=== PATIENT | female | born 1990 | race Caucasian/White ===

== ENCOUNTER 2017-02-04 05:45 | Inpatient (IN) | payer OTHER ==
[~2017-02-04] VITALS: Ht 162.6 cm; Wt 71.0 kg
--- NOTE | ~2017-02-04 | OR ---
[facility] [address] [place], [place] [address] Draft DATE OF OPERATION: 02/04/2017 SURGEON: Marga Robles MD PREOPERATIVE DIAGNOSIS: A 26-year-old 5, para 4 with molar approximately 5 weeks long. POSTOPERATIVE DIAGNOSES: A 26-year-old 5, para 4 with molar approximately 5 weeks long, uterine atony and hemorrhage, pelvic hematoma. PROCEDURES: Suction dilation and curettage with Bakri balloon placement, supracervical abdominal hysterectomy with right salpingo-oophorectomy, and cystoscopy. AIR TABLE OPERATOR SURGEON: Regis Alarcon D.O. INTRAOPERATIVE CONSULT: 1. Issa Dumont M.D. 2. Angie Everett M.D. ANESTHESIA: General endotracheal with pharyngeal mask, Issa Martinez CRNA. IV FLUIDS IN: 24684 mL of lactated Ringer's. ESTIMATED BLOOD LOSS: 2500 mL. URINE OUTPUT: 3000 mL, 2800 per Hou draining to gravity and 200 per straight cath. 4 units of packed red blood cells and 2 units of fresh frozen plasma. PROCEDURE TECHNIQUE: The patient was taken back to the operating room with IV fluids hanging. She was placed on the operating table in supine position, underwent general endotracheal anesthesia with rapid sequence intubation using pharyngeal mask and was then repositioned into dorsal PATIENT NAME: TANVIR JERONIMO OPERATIVE REPORT DATE OF : 88 PHYSICIAN: MARGA ROBLES MD REPORT #: [id number] REPORT IS CONFIDENTIAL AND NOT TO BE RELEASED WITHOUT AUTHORIZATION [facility] [address] [place], [place] [address] Draft lithotomy position with Mars stirrups. She was prepped and draped in the normal sterile fashion. A sterile weighted speculum was placed into the vagina and a single-tooth tenaculum placed on the anterior lip of the cervix. The uterus was then sounded to 11 cm and of note, she had staining of the perineum with blood. There was no active bleeding prior to the uterine sounding at the os. The uterus sounded easily and was easily dilated to a size 9 curved suction curette. Suction curettage was then performed. Approximately 600 mL of blood and products of conception were retrieved. During that suction curettage, the uterus was noted to continue to bleed, it was continuously spurting blood despite being massaged and sharp curette was then performed with no change in the status of the uterus in the bleeding. The patient received IM Methergine. Subsequently, Cytotec suppository 1 g was placed per rectum. She then was receiving Pitocin 30 units in her IV fluids and subsequently a second dose of Methergine 0.2 mg was given IM directly into the uterus, again with little change in the bleeding. While these attempts to stop bleeding were being done, the Bakri balloon was also being attempted to be placed through the cervical os, which was easily dilated to accommodate the balloon and once it was in place, that was slowly filled with normal saline solution and bedside ultrasound was performed. Subsequently, a Hou catheter was placed into the bladder to empty it and see if that would also in anyway help with the uterine bleeding. It did seem to slow it down as did the Bakri balloon initially. The patient got a dose of Hemabate IM and that did not help either. At that point in time, Dr. Alarcon was called into the room to assist resistance just after having been successfully placing the Bakri balloon. Further, medications were given to help with hemostasis, which were not successful and further massage of the uterus was performed. It was then determined that the case should be converted to abdominal hysterectomy, and the patient was re-prepped and draped accordingly. Attention was then turned to the abdomen and a Pfannenstiel skin incision was made through the old scar, it was carried down through the subcutaneous tissue to tono the fascia in the midline. That incision was extended laterally and on the inferior edge of the fascia, it was grasped with Vaibhav clamps, tented up and away and sharply dissected off from the rectus abdominis muscles. The scarring was quite significant through the fascia and down into the rectus abdominis muscles. The same was performed superiorly and in the process, there was a vessel that was cut and was also bleeding quite briskly, was successfully tied off and subsequently, the rectus abdominis muscles were in the midline. The peritoneum identified, grasped with mosquito clamps, and entered sharply. That incision was extended superiorly and inferiorly. The bladder appeared to be scarred somewhat highly to the peritoneum in a higher position than normal. The omentum was free. There was no scarring there and upon entering the abdomen, it was clear that the Bakri balloon had perforated through the uterus and was in the pelvis. It was cut open and removed, and attention was turned to the uterus, which was noted to be small. It was grasped on either side with straight clamps and on the right, it was noted that the right fallopian tube appeared to be hydrosalpinx, it was very edematous from the Bakri balloon placement and it was clamped and removed along with the ovary, excised off and sutured with #0 Vicryl free ties and then stitch. Good PATIENT NAME: TANVIR JERONIMO OPERATIVE REPORT DATE OF : 88 PHYSICIAN: MARGA ROBLES MD REPORT #: [id number] REPORT IS CONFIDENTIAL AND NOT TO BE RELEASED WITHOUT AUTHORIZATION [facility] [address] [place], [place] [address] Draft hemostasis was achieved on that side and attention was then turned to the left side of the uterus. At this time, the Mati retractor was placed and the bowel had been packed away with moist laparotomy sponges and a moist blue towel. The area of the retroperitoneum which was noted to be oozy and had a large hematoma on the right pelvic sidewall was packed away with sponges as well to apply pressure to that area. The anterior leaf of the broad ligament was then incised along the bladder reflection to midline from both sides and the bladder was gently dissected off the lower uterine segment in a sharp manner with the Metzenbaum scissors. The infundibulopelvic ligament on the left was clamped, transected, and ligated with #0 Vicryl free tie and then suture ligated with #0 Vicryl. Good hemostasis was observed. Uterine arteries were skeletonized and then clamped with Nicolasa clamps, transected, and suture ligated with #0 Vicryl. It was noted the hole from the Bakri balloon. The tissue was quite soft and oozy and despite suturing it with 3-0 chromic superficially, it continued to pull away and fall apart. Hemostasis was not very good and General Surgeon consult had been called for with Dr. Dumont and Dr. Everett had also been called for to assist at that point in time. Dr. Everett was the first to arrive and came in for a fresh set of eyes to help with the surgery. The area where the Bakri had perforated through was oversewn as stated with 3-0 Vicryl chromic in a continuous running fashion, but good hemostasis was not achieved, so pressure was applied to that area and subsequently, Dr. Dumont scrubbed in and #0 Vicryl was used to oversew that area after the uterus had been removed supracervically. The right round ligament had been tied off and suture ligated with #0 Vicryl. It was not possible to visualize the right ureter due to the pelvic hematoma at sidewall, but was palpated and felt to be quite well below the area of dissection and again, the area where the supracervical hysterectomy had been performed and uterus and right ovary and tube had been passed off was oversewn with #0 Vicryl in continuous running fashion per Dr. Dumont and good hemostasis was achieved on that area, it was oversewn with 2-0 Vicryl stitches. Once that area was found to be somewhat hemostatic, please see his further dictations of the case, he used Amy and Gel-Foam to pack that area because of the just general oozing and then looked at the pelvic sidewall where there was retroperitoneal hematoma and oozing that was opened up and suctioned out. There was no obvious singular vessel that was bleeding, it was just generalized oozing and again, Amy powder was placed in that area and Gel-Foam used to pack it off. Pressure then applied and subsequently, was reinspected and found to be relatively hemostatic. Once the pelvic hematoma was controlled, the lap sponges were removed. Counts were correct and the Mati retractor was then removed and the peritoneum was identified and reapproximated with 2-0 Vicryl in a continuous running fashion and the rectus abdominis muscles were then reapproximated with #0 Vicryl interrupted and ACL powder was sprinkled over that to improve healing of that issue. Of note, there were some defects in the fascial wall, which were oversewn with #0 Vicryl suture and the fascia itself was then reapproximated using #0 Vicryl in a continuous running fashion from the patient's right apex to midline and from the left apex to the midline. Good hemostasis was achieved on those layers. Subcutaneous layer was then inspected and Bovie used for hemostasis on it and then a 2-0 Vicryl in a PATIENT NAME: TANVIR JERONIMO OPERATIVE REPORT DATE OF : 88 PHYSICIAN: MARGA ROBLES MD REPORT #: [id number] REPORT IS CONFIDENTIAL AND NOT TO BE RELEASED WITHOUT AUTHORIZATION [facility] [address] [place], [place] [address] Draft continuous running fashion for further hemostasis. Prior to placing that 2-0 Vicryl, the ACL powder was sprinkled in that layer as well to help prevent infection and the skin itself was then closed using stainless steel asif. Pressure dressing was placed over the incision and laparotomy sponges, instrument, and needle counts were all performed again and found to be accurate. The patient was then taken to the critical care unit, still intubated and in serious, but stable condition. Again, pathology was the uterus and right ovary as well as tube. Complications were uterine perforation with the Bakri balloon and prior to that, uterine atony/hemorrhage. Marga Robles MD JKM/MODL /[id number] PATIENT NAME: TANVIR JERONIMO OPERATIVE REPORT DATE OF : 88 PHYSICIAN: MARGA ROBLES MD REPORT #: [id number] REPORT IS CONFIDENTIAL AND NOT TO BE RELEASED WITHOUT AUTHORIZATION
[~2017-02-04 05:45] MED LIST: CIPRO500 MG PO; PRENATAL GUMMI1 EACH PO
--- NOTE | 2017-02-04 21:25 | OR ---
[facility] [address], [place] [address] Signed DATE OF OPERATION: 02/04/2017 SURGEON: Danyell Huynh MD PREOPERATIVE DIAGNOSIS: Ongoing bleeding following emergency hysterectomy for molar . POSTOPERATIVE DIAGNOSIS: Paracystic retroperitoneal oozing and bleeding related to emergency hysterectomy for molar . PROCEDURES: 1. Intraoperative consultation and evaluation for pelvic bleeding. 2. Over-sewing of bleeders and application of thrombostatic agents to control peripelvic bleeding. REIMBURSEMENT DIRECTOR: Karlos Burks Ward. HISTORY: I was called for emergency intraoperative consultation in assistance for ongoing bleeding following emergency hysterectomy for molar . The patient has had 4 successful pregnancies in the past, but underwent under the direction of her primary application support analyst, Dr. Burks evacuation of molar , which culminated in hysterectomy due to bleeding. She had a fair amount of scarring between the uterus and the bladder itself. Assistance with Dr. Everett and ultimately Dr. Alarcon was undertaken, as there was fair amount of bleeding and hysterectomy was performed, which was accompanied by bleeding in the raw retroperitoneal spaces anterior to the vaginal cuff and bladder and right paracervical area. Attempts by the Gynecology team for hemostasis were unsuccessful and that was the r taniya I was summoned for assistance. FINDINGS: Considerable amount of oozing of relatively bright blood from the right paracervical area as well as the perivaginal cuff area was noted. This was initially controlled with oversewing with Vicryl suture and ultimately controlled with Amy hemostatic agent as well as Gel-Foam and packing. By conclusion of my involvement in the operation, good hemostasis is noted. There did not appear to be extension of retroperitoneal hematoma above the pelvic rim in Electronically Signed By: DANYELL HUYNH MD 02/04/17 2125 PATIENT NAME: TANVIR JERONIMO OPERATIVE REPORT DATE OF : 88 PHYSICIAN: DANYELL HUYNH MD REPORT #: [id number] REPORT IS CONFIDENTIAL AND NOT TO BE RELEASED WITHOUT AUTHORIZATION [facility] [address] [place], [place] [address]. No evidence of major vascular injury particularly mostly oozing, which may be partly from low-grade coagulopathy as well as the factors related to molar itself and trauma. DESCRIPTION OF PROCEDURE: I joined the operative team which 3 of the OB-GYNs were scrubbed and attending to the problem. A Pfannenstiel incision was noted and a plastic retractile device. Packing in the pelvis was noted. Careful unpacking of the pelvis on my part showed no evidence of significant retroperitoneal hematoma above the pelvic rim, but a fair amount of bleeding from the right paracervical area behind the peritoneum (retroperitoneal). There was a fair amount of oozing from the area of the vaginal cuff, which was only partially secured and the raw surface in that area. The packing was reapplied to the right paracervical area with plain gauze and over-sewing of the cuff and peritoneum undertaken carefully providing marked improvement of hemostasis. This area was then packed off and careful removal of the laparotomy packs in the right paracervical area undertaken. There appeared to be no evidence of large vessel injury (internal iliac or external iliac), but there were diffuse oozing of the soft tissue and NON expansile retroperitoneal bleeding. This area was evacuated and selective cautery applied. Large sutures would not likely have been effective in this situation. On that basis, Amy hemostatic powder was liberally applied to the raw surface area and a large Gel-Foam applied and then a laparotomy pad and stenting of the area with the head of a sweetheart retractor. With time and patience, hemostasis was emerging. Concurrently, fresh-frozen plasma was being infused as the patient has had 4 units of packed cells at that point. Examination of the supracervical cuff area showed a few punctate bleeders which were secured with electrocautery. Additional Amy hemostatic agent and Gel-Foam in these areas were packed. Careful withdrawal of the packing and so forth, ultimately showed good hemostasis to all areas concern. At this point, the patient was quite stable. No ongoing significant bleeding noted. The major maneuvers of the intended operation of hysterectomy have been accomplished and closure is anticipated forthwith. Danyell Huynh MD Electronically Signed By: DANYELL HUYNH MD 02/04/176 PATIENT NAME: TANVIR JERONIMO OPERATIVE REPORT DATE OF : 88 PHYSICIAN: DANYELL HUYNH MD REPORT #: [id number] REPORT IS CONFIDENTIAL AND NOT TO BE RELEASED WITHOUT AUTHORIZATION [facility] [address] [place] [address] Signed /MODL /[id number] cc: MD Regis Ku DO Patricia J Winn, MD Electronically Signed By: DANYELL HUYNH MD 02/04/17 2125 PATIENT NAME: TANVIR JERONIMO OPERATIVE REPORT DATE OF : 88 PHYSICIAN: DANYELL HUYNH MD REPORT #: [id number] REPORT IS CONFIDENTIAL AND NOT TO BE RELEASED WITHOUT AUTHORIZATION
[2017-02-07] MEDS ORDERED: FERROUS SULFAT325 MG PO (14:56)
[2017-02-07] MEDS ORDERED: PERCOCET 5-3251 EACH PO ×2 (14:59→15:10)
[2017-02-07] MEDS ORDERED: IBUPROFEN800 MG PO (15:00)
[2017-02-07] MEDS ORDERED: METOCLOPRAMIDE10 MG PO (15:01)
== END 2017-02-07 16:55 | disposition home or self-care (01) | DRG 767 ==
LOC: DS 05:45 → CCU 11:15 → DS 11:15 → CCU 12:10 → MS 12:10
PROVIDERS: ADMIT Obstetrics & Gynecology
PROC: 0UT00ZZ Resection of Right Ovary, Open Approach (ICD-10-PCS; 2017-02-04)
PROC: 0W3R7ZZ Control Bleeding in Genitourinary Tract, Via Natural or Artificial Opening (ICD-10-PCS; 2017-02-04)
PROC: 0BH17EZ Insertion of Endotracheal Airway into Trachea, Via Natural or Artificial Opening (ICD-10-PCS; 2017-02-04)
PROC: 30230N1 Transfusion of Nonautologous Red Blood Cells into Peripheral Vein, Open Approach (ICD-10-PCS; 2017-02-04)
PROC: 5A1935Z Respiratory Ventilation, Less than 24 Consecutive Hours (ICD-10-PCS; 2017-02-04)
PROC: 10D07Z8 Extraction of Products of Conception, Other, Via Natural or Artificial Opening (ICD-10-PCS; principal; 2017-02-04 06:45)
PROC: 0UT50ZZ Resection of Right Fallopian Tube, Open Approach (ICD-10-PCS; 2017-02-04 06:45)
PROC: 0UT90ZZ Resection of Uterus, Open Approach (ICD-10-PCS; 2017-02-04 06:45)
DX: O02.0 Blighted ovum and nonhydatidiform mole (principal); D62 Acute posthemorrhagic anemia; N99.61 Intraoperative hemorrhage and hematoma of a genitourinary system organ or structure complicating a genitourinary system procedure; O08.1 Delayed or excessive hemorrhage following ectopic and molar pregnancy; M75.21 Bicipital tendinitis, right shoulder; Z3A.01 Less than 8 weeks gestation of pregnancy
CPT/HCPCS: 00952; 31720; 36415; 36430; 36600; 51702; 71010; 80048; 80053; 82247; 82465; 82803; 83615; 83735; 84100; 84443; 84478; 84550; 85025; 85027; 85379; 85384; 85610; 85730; 86850; 86900; 86901; 86920; 86927; 94002; 94640; 94667; C1763; J0330; J0690; J1100; J1170; J1885; J2210; J2250; J2270; J2405; J2550; J2590; J2704; J2765; J3010; J3475; J7040; J7120; P9016; P9035

== ENCOUNTER 2023-11-30 18:05 | Emergency (ER) | payer OTHER ==
[~2023-11-30] VITALS: Ht 162.6 cm; Wt 64.7 kg
[~2023-11-30 18:05] MED LIST changes: +FERROUS SULFAT325 MG PO; +IBUPROFEN800 MG PO; +LOMOTIL TABLET1 EACH PO; +METOCLOPRAMIDE10 MG PO; +ONDANSETRON ODT8 MG PO; +PERCOCET 5-3251 EACH PO
[2023-11-30 19:04] LABS: INFLUENZA B NAA NEGATIVE (NEGATIVE); RESPIRATORY SYNCYTIAL VIR NAA NEGATIVE (NEGATIVE)
[2023-11-30] MEDS ORDERED: IBUPROFEN 600 MG TAB PO ONE (19:45)
[2023-11-30] MEDS ORDERED: ALBUTEROL/IPRATROPIUM 3 ML NEB INH ONE (19:45)
[2023-11-30] MEDS ORDERED: AMOXICILLIN/CLAVULANATE K 875 MG HOME.PACK PO ONE (20:30)
[2023-11-30] MEDS ORDERED: AMOX TR-K CLV1 EAC1 PO (20:31)
[2023-11-30] MEDS ORDERED: INHALER, ASSIST DEVICES 1 EACH SPACER MISC ONE (20:45)
[2023-11-30] MEDS ORDERED: ALBUTEROL SULFATE 8 GM HOME.PACK INH ONE (20:45)
[2023-11-30 20:52] VITALS: BP 119/52
== END 2023-11-30 20:53 | disposition home or self-care (01) ==
LOC: ED 18:05
PROVIDERS: Emergency Medicine
DX: J18.9 Pneumonia, unspecified organism (principal); Z87.891 Personal history of nicotine dependence; Z88.5 Allergy status to narcotic agent
CPT/HCPCS: 71045; 87502; 99284-25; A9270; U0002